=== PATIENT | female | born 1965 | race African-American/Black ===

== ENCOUNTER → 2018-10-01 | Outpatient (CLI) | payer MEDICAID ==
--- NOTE | 2018-10-01 16:04 | RADIOLOGY REPORT (SQ) ---
EXAM DESCRIPTION: NM 3 PHASE BONE SCAN COMPLETED DATE/TIME: 10/01/2018 3:36 pm REASON FOR STUDY: UNSPECIFIED OPEN WOUND, LEFT KNEE (S81.002D) S81.002D UNSPECIFIED OPEN WOUND, LEF T KNEE, SUBSEQUENT ENCOU COMPARISON: No available imaging studies for comparison. RADIONUCLIDE AND DOSE: 19.85 millicuries Tc99m MDP. The route of agent administration: Intravenous. ADDITIONAL DRUGS AND DOSES: None. TECHNIQUE: Following injection of the radiopharmaceutical, serial blood flow images acquired. Equil ibrium blood pool images then acquired. Routine delayed images at 3 hour acquired of the areas of cl inical concern with additional focused images as needed. AREA OF INTEREST: KNEES LIMITATIONS: None. FINDINGS: VASCULAR FLOW IMAGES: No asymmetry or focal areas of hyperemia. BLOOD POOL IMAGES: No asymmetry or focal areas of soft-tissue hyper-perfusion. BONES: Photopenia associated with left knee arthroplasty. No other significant finding. KIDNEYS: Symmetric excretion without obstruction. OTHER: No other significant finding. IMPRESSION: No evidence of loosening or infection. COMMENT: Quality measure 147: Current bone scan is compared with any available plain radiographs, p rior bone scans, and CT/MRI. TECHNICAL DOCUMENTATION: JOB ID: [id number] [facility]- All Rights Reserved Reading location - IP/workstation name: [email or web address]
== END ==
LOC: RAD 10:55
PROVIDERS: ATTEND Physician Assistant
DX: S81.002D Unspecified open wound, left knee, subsequent encounter (principal); X58.XXXD Exposure to other specified factors, subsequent encounter
CPT/HCPCS: 78315; A9561; Q9969